=== PATIENT | male | born 1950 | race Caucasian/White ===

== ENCOUNTER 2019-02-02 17:00 | Outpatient (CLI) | payer MEDICARE | END 2019-02-02 17:01 | disposition home or self-care (01) | LOC: SLEEPLAB 17:00 | PROVIDERS: ATTEND Family Medicine | DX: G47.33 Obstructive sleep apnea (adult) (pediatric) (principal); R53.83 Other fatigue; R51 Headache; I10 Essential (primary) hypertension; R06.83 Snoring | CPT/HCPCS: 95806 ==

== ENCOUNTER 2019-04-06 08:08 | Outpatient (CLI) | payer MEDICARE ==
--- NOTE | 2019-04-06 09:57 | CT ---
CT ABDOMEN AND PELVIS WITH AND WITHOUT IV CONTRAST: Date: 04/06/19 HISTORY: Microscopic hematuria. FINDINGS: There are mild dependent changes in the lung bases. There are a few low density lesions in the left l obe of the liver measuring up to 1.0 cm, likely cysts. Also noted is an 18 mm low density lesion, lik bismark cyst, in the caudate lobe of the liver. A calcified granuloma is seen in the spleen. The pancreas and left adrenal gland normal. There is a 14 mm right adrenal nodule wit attenuation values less yu n 10 Hounsfield units on the noncontrasted study, consistent with benign adenoma. No calculi seen in the kidneys, ureters, or the urinary bladder. No hydroureteronephrosis is seen on either side. Postcontrast images demonstrate no evidence of enhancing renal mass. A tiny low density lesion in the left kidney is likely a cyst. There is normal contrast excretion into the ureters and t he urinary bladder. No free air, free fluid, or lymphadenopathy seen in the abdomen or pelvis. There are vascular calcifi cations without evidence of aneurysmal dilatation of the abdominal aorta. The prostate is enlarged. T here are degenerative changes in the spine. There are postop changes of right hip arthroplasty. IMPRESSION: 1. No CT evidence of urinary tract calculi/obstruction or renal mass. 2. Hepatic cysts. 3. Right adrenal adenoma. 4. Prostatic enlargement. POS: OFF
== END 2019-04-06 08:09 | disposition home or self-care (01) ==
LOC: BICCT 08:08
PROVIDERS: ATTEND Urology
DX: R31.29 Other microscopic hematuria (principal); K76.89 Other specified diseases of liver; D35.01 Benign neoplasm of right adrenal gland; N40.0 Benign prostatic hyperplasia without lower urinary tract symptoms
CPT/HCPCS: 74178; 82565